=== PATIENT | female | born 1985 | race Caucasian/White ===

== ENCOUNTER 2018-08-31 05:59 | Day surgery (SDC) | payer BC ==
[2018-08-27 13:10] VITALS: BMI 39.1
[~2018-08-31 05:59] MED LIST: DEXAMETHASONE SOD PHOSPHATE 10 MG/ML 1 ML VIAL IV ONE; HEPARIN SODIUM,PORCINE 5,000 UNIT/ML 1 ML VIAL SQ ONE; LACTATED RINGERS 1,000 ML IV SCH; LIDOCAINE 1% 20 ML VIAL (10MG/ML) FOR IV START INTRADERMA PRN; MIDAZOLAM (PF) 2 MG/2 ML VIAL IV PRN; ONDANSETRON 4 MG/2 ML VIAL IVP ONE; ceFAZolin IN SWFI 2 GM/20 ML SYRINGE IVP ONE; fentaNYL (PF) 50 MCG/ML 2 ML AMP IV PRN
[2018-08-31] MEDS ORDERED: ACETAMINOPHEN IV (For NPO) 1,000 MG in EMPTY BAG 1 BAG IVPB ONE (06:24)
[2018-08-31] MEDS ORDERED: INDOCYANINE GREEN 25 MG VIAL IV STA (06:24)
--- NOTE | 2018-08-31 06:26 | P.GSHP ---
History of Present Illness H&P Date: 08/31/18 CHIEF COMPLAINT: Cholecystitis HISTORY OF PRESENT ILLNESS: The patient is a 32-year-old female who presents with history of epigastric including right upper quadrant abdominal pain. She underwent diagnostic studies for her gallbladder. Separately her clinical picture was consistent with cholecystitis. Now she presents for surgical intervention. PAST MEDICAL HISTORY: Please see list PAST SURGICAL HISTORY: Please see list MEDICATIONS: Please see list ALLERGIES: Denies. SOCIAL HISTORY: No illicit drug use or recent tobacco use FAMILY HISTORY: Pertinent for gallbladder disease REVIEW OF ORGAN SYSTEMS: CONSTITUTIONAL: No reports of fevers or chills. HEENT: Denies any troubles with the vision or hearing. ENDOCRINE: No reports of hypothyroidism. No diabetes. RESPIRATORY: No recent pneumonias. CARDIOVASCULAR: Denies chest pain or palpitations GI: No blood in stools or constipation. MUSCULOSKELETAL: Has occasional joint pain including back pain. NEURO: No seizure disorders or headaches. No recent stroke. PSYCH: No depression or suicidal ideation. GENITOURINARY: No active blood in urine. No urinary hesitancy. HEMATOLOGIC: No personal or family history of DVTs or pulmonary emboli. SKIN: No skin cancer. PHYSICAL EXAM: VITAL SIGNS: Afebrile vital signs stable GENERAL: Well-developed pleasant in no acute distress. HEENT: No scleral icterus. Extraocular movements grossly intact. Moist buccal mucosa. NECK: Supple without lymphadenopathy. CHEST: Unlabored respirations. Equal bilateral excursions. CARDIOVASCULAR: Regular rate regular rhythm rhythm. Distal 2+ pulses. ABDOMEN: Soft, nondistended. Tender along the epigastrium and right upper quadrant. MUSCULOSKELETAL: No clubbing, cyanosis, or edema. NEURO: Cranial nerves II to XII within normal limits. No focal or lateralizing signs. PSYCH: Alert and oriented to person, place and time. SKIN: Well-perfused good skin turgor. ASSESSMENT: 1. Epigastric and right upper quadrant abdominal pain 2. Chronic cholecystitis 3. Symptomatic gallstones. PLAN: 1. Will need a robotic cholecystectomy possible open. Benefits and risks were described. 2. Heparin for DVT prophylaxis 5000 units. 3. Antibiotic prophylaxis. Past Medical History Additional Past Medical History / Comment(s): abdominal pain and nausea History of Any Multi-Drug Resistant Organisms: None Reported Past Surgical History: Bariatric Surgery, Tonsillectomy Additional Past Surgical History / Comment(s): gastric sleeve, pinky toe left foot removed Past Anesthesia/Blood Transfusion Reactions: No Reported Reaction Smoking Status: Never smoker - Past Family History Mother Family Medical History: No Reported History Medications and Allergies Home Medications Medication Instructions Recorded Confirmed Type Medroxyprogesterone Acetate 150 mg IM ONCE 08/27/18 08/27/18 History [Depo-Provera] Multivitamins, Thera [Multivitamin 1 tab PO DAILY 08/27/18 08/27/18 History (formulary)] Allergies Allergy/AdvReac Type Severity Reaction Status Date / Time No Known Allergies Allergy Verified 08/31/18 06:10 Surgical - Exam Vital Signs Temp Pulse Resp BP Pulse Ox 98.6 F 71 16 138/75 97 08/31/18 06:23 08/31/18 06:23 08/31/18 06:23 08/31/18 06:23 08/31/18 06:23
[2018-08-31] MEDS ORDERED: ONDANSETRON 4 MG/2 ML VIAL IVP ONE (06:29)
[2018-08-31] MEDS ORDERED: DEXAMETHASONE SOD PHOSPHATE 10 MG/ML 1 ML VIAL IV ONE (06:30)
[2018-08-31 07:08] LABS: Basophils % (A) 1 %; Eosinophils # (A) 0.2 k/uL (0-0.7); Eosinophils % (A) 3 %; HCT 40.4 % (34.0-46.0); HGB 13.3 gm/dL (11.4-16.0); Lymphocytes # (A) 2.5 k/uL (1.0-4.8); Lymphocytes % (A) 31 %; MCHC 33.1 g/dL (31.0-37.0); MCV 90.8 fL (80.0-100.0); Monocytes # (A) 0.4 k/uL (0-1.0); Monocytes % (A) 5 %; Neutrophils # (A) 4.8 k/uL (1.3-7.7); Neutrophils % (A) 60 %; Platelet Count 200 k/uL (150-450); RBC 4.45 m/uL (3.80-5.40); RDW 12.4 % (11.5-15.5); WBC 8.1 k/uL (3.8-10.6)
[2018-08-31] MEDS ORDERED: GLYCOPYRROLATE 0.2 MG/ML 2 ML VIAL ONE (07:38)
[2018-08-31] MEDS ORDERED: NEOSTIGMINE 1 MG/ML 10 ML VIAL ONE (07:38)
[2018-08-31] MEDS ORDERED: KETAMINE 10 MG/ML 20 ML VIAL ONE (07:38)
[2018-08-31] MEDS ORDERED: LIDOCAINE 1% INJ 10MG/ML (20 ML MDV) ONE (07:38)
[2018-08-31] MEDS ORDERED: fentaNYL (PF) 50 MCG/ML 2 ML AMP ONE (07:38)
[2018-08-31] MEDS ORDERED: SUCCINYLCHOLINE CHLORIDE 100 MG/5 ML SYR IV ONE (07:38)
[2018-08-31] MEDS ORDERED: ROCURONIUM BROMIDE 10 MG/ML 10 ML VIAL IV ONE (07:38)
[2018-08-31] MEDS ORDERED: PROPOFOL 10 MG/ML 20 ML VIAL IV ONE (07:38)
[2018-08-31] MEDS ORDERED: MIDAZOLAM 2 MG/2 ML VIAL ONE (07:38)
[2018-08-31] MEDS ORDERED: BUPIVACAIN-EPI 0.25%-1:200,000 30 ML VIAL SQ ONE (08:01)
[2018-08-31] MEDS ORDERED: INDOCYANINE GREEN 25 MG VIAL IV ONE (08:02)
[2018-08-31] MEDS ORDERED: BUPIVACAIN-EPI 0.5%-1:200,000 30 ML VIAL SQ ONE (08:03)
--- NOTE | 2018-08-31 08:49 | P.OP ---
Date of Procedure: 08/31/18 Description of Procedure: SURGEON: FERNANDA CAIN MD PREOPERATIVE DIAGNOSES: 1. Right upper quadrant abdominal pain 2. Chronic cholecystitis 3. Morbid obesity due to excess calories, BMI 39.1 4. Gallstones 5. History of sleeve gastrectomy POSTOPERATIVE DIAGNOSES: 1. Right upper quadrant abdominal pain 2. Chronic cholecystitis 3. Morbid obesity due to excess calories, BMI 39.1 4. Gallstones 5. History of sleeve gastrectomy OPERATION: Robotic-assisted da Cedric Xi laparoscopic cholecystectomy, multiport with FIREFLY ESTIMATED BLOOD LOSS: 5 mL. SPECIMENS REMOVED: Gallbladder. COMPLICATIONS: None. OPERATIVE FINDINGS: 1. Chronic cholecystitis 2. Gallstones, small 0.2 to 0.3 mm 3. Decompression of gallbladder 4. Console time 10 minutes INDICATIONS: The patient is a 32-year-old female who presents with cholelcystitis. Surgical intervention with a laparoscopic cholecystectomy was described at length including injury to the biliary tree, bleeding, infection, need for further surgery. Informed consent was obtained. Robotic assisted laparoscopic approach was described. Benefits and risks of the procedure including but not limited to bleeding, infection, injury to the biliary tree was described. Informed consent was obtained. DESCRIPTION OF PROCEDURE: Patient was brought to the operating room, placed in supine position. After general induction, the abdomen had been prepped and draped in standard sterile fashion. The robotic da Cedric XI system was primed. After a timeout protocol was performed, the patient had been prepped and draped in standard sterile fashion. The patient was injected with indocyanine green. A 5 mm 0 degrees laparoscopic trocar entry was performed along the left upper quadrant. The abdomen insufflated to 15 mmHg pressure which was tolerated well. Diagnostic laparoscopy demonstrated no injury to bowel viscera or mesentery. The liver surface was unremarkable. Next, two 8 mm robotic ports were placed along the right upper abdomen. The camera 8-mm port was maintained along the epigastrium. Another 8 mm port was placed along the left upper abdominal wall after exchanging the 5 mm port. Please note that the ports were placed at least 10 to 15 cm away from the target anatomy of the gallbladder. The robot was docked along the left lateral abdomen. The patient was repositioned in reverse Trendelenburg position. Using a grasper for arm 3, a grasper for arm 4, including hook cautery for arm 1 , the robotic system was docked and primed as described. Instruments were interchanged by the assistant property manager including hook cautery, Bovie cautery and clip appliers. I had sat at the console. The gallbladder fundus was retracted over the dome of the liver. Initial attention was brought to the infundibulum which was gently retracted in the inferior lateral approach. Using a grasper, the cystic duct including the cystic artery was carefully skeletonized. FIREFLY was used to identify the cystic artery and cystic structures. Large PLASTIC clips were used throughout the entire case. Using a clip desktop operator 2 clips were placed proximally, and 1 clip was placed distally along the cystic duct and then cauterized with the cautery. Again care was taken to avoid any injury to the biliary tree as the common bile duct was clearly visualized during this portion of dissection. Next, the cystic artery was similarly clipped and cauterized. Electro-Bovie cautery was used to remove the gallbladder from the hepatic fossa. Hemostasis was checked and found to be adequate. Decompression of the gallbladder did occur with all bile removed using sponges. The robot was undocked. I re-scrubbed into the case. Using a 10 mm Endo Catch bag via the left upper quadrant incision, the specimen was removed from the abdominal cavity. All pneumoperitoneum instruments were evacuated from the abdominal cavity. The incisions were reapproximated using 4-0 Monocryl in an interrupted subcuticular fashion. Fascial defects were less than 8 mm in size. Please note along the trocar sites, local anesthetic was placed as a field block prior to insertion of all instruments. Liquid glue was applied to the skin. At the end of the procedure needle, sponge, and instrument count had been verified correct by the surgical coder. The patient was transferred to postanesthesia care unit in stable condition. Intraoperative films were shared with the patient's family who were very pleased with the level of care. Plan - Discharge Summary Discharge Rx Participant: No New Discharge Prescriptions: No Action Multivitamins, Thera [Multivitamin (formulary)] 1 tab PO DAILY Medroxyprogesterone Acetate [Depo-Provera] 150 mg IM ONCE Discharge Medication List Medroxyprogesterone Acetate [Depo-Provera] 150 mg IM ONCE 08/27/18 [History] Multivitamins, Thera [Multivitamin (formulary)] 1 tab PO DAILY 08/27/18 [History ]
[2018-08-31 09:00] VITALS: TEMP 99.5
[2018-08-31] MEDS: HYDROmorphone 0.5 MG/0.5 ML SYRINGE IVP PRN ×4 (09:04→09:33)
[2018-08-31 09:09] VITALS: RESP 16
[2018-08-31 10:13] VITALS: BP 160/82; PULSE 68
== END 2018-08-31 10:29 | disposition home or self-care (01) ==
LOC: OR 05:59
PROVIDERS: ATTEND Surgery Plastic and Reconstructive Surgery
DX: K80.10 Calculus of gallbladder with chronic cholecystitis without obstruction (principal); E66.01 Morbid (severe) obesity due to excess calories; Z68.39 Body mass index [BMI] 39.0-39.9, adult; Z98.84 Bariatric surgery status; Z90.3 Acquired absence of stomach [part of]; Z79.3 Long term (current) use of hormonal contraceptives
CPT/HCPCS: 81025; 86900; 86901; 88304; 85025; 86850; 47562; J2250; J1644; J1100; J2710; J2405; J2001; J3010; J0131; J0330; J2704; J1170; J0690

== ENCOUNTER → 2020-04-12 | Outpatient (CLI) | payer BC, OTHER ==
[2020-04-12 13:16] VITALS: BP 131/84; PULSE 106; RESP 18; TEMP 98.4; BMI 40.1
--- NOTE | 2020-04-12 13:38 | P.HPBAR ---
Bariatric H&P - History & Physicial H&P Date: 04/12/20 History & Physicial: Visit/CC: f/u post sx feb 2018; transfer of care Patient initial contact: Initial weight: Initial weight in pounds: Height: 5 ft 1 in Initial BMI: Last weight: Current weight: 96.524 kg Current weight in pounds: 212.80 Current BMI: 40.1 [place] body weight (based on NIH guidelines): 47.627 kg Excess body weight loss: The patient is a 34 year-old F who presents for Bariatric Assessment. Highest 301 pounds. Lowest weight of 199 pounds. Sleeve Feb 13, 2018. Blood work. She is dating. She reports 10 pounds weight gain. The man she is dating is an enabler. She reports increased heartburn in the past 9 months controlled with Omeprazole. Swallow study for new reflux. Recommend 2 week protein diet. Recommend bariatric labs. She reports no labs in 2 years. No hernia on skin Recommend follow-up in 3 weeks for labs, studies Past Medical History Past Medical History: GERD/Reflux, Hypertension Additional Past Medical History / Comment(s): abdominal pain and nausea History of Any Multi-Drug Resistant Organisms: None Reported Past Surgical History: Bariatric Surgery, Cholecystectomy, Orthopedic Surgery, Tonsillectomy Additional Past Surgical History / Comment(s): gastric sleeve, pinky toe left foot removed Past Anesthesia/Blood Transfusion Reactions: No Reported Reaction Past Psychological History: No Psychological Hx Reported Smoking Status: Current some day smoker Past Alcohol Use History: Rare Past Drug Use History: None Reported - Past Family History Mother Family Medical History: No Reported History Surgical - Exam Vital Signs Temp Pulse Resp BP 98.4 F 106 H 18 131/84 04/12/20 13:10 04/12/20 13:10 04/12/20 13:10 04/12/20 13:10 Bariatric Checklist Checklist: Plan: Checklist: EGD: 1. Hiatal hernia: 2. H. Pylori: HgbA1c: Vitamin D: Smoking: Never smoker Primary care physician referral: Dr. Coon Psychiatry clearance: Cardiology clearance: Sleep study: Diet journal: VTE risk score: VTE risk level: Rehab needs at discharge:
[2020-04-12 14:49] LABS: HCT 40.7 % (34.0-46.0); HGB 13.1 gm/dL (11.4-16.0); MCH 30.3 pg (25.0-35.0); MCHC 32.3 g/dL (31.0-37.0); MCV 93.9 fL (80.0-100.0); Mean Platelet Volume 7.7; Platelet Count 193 k/uL (150-450); RBC 4.33 m/uL (3.80-5.40); WBC 12.1 k/uL (3.8-10.6)
[2020-04-12 15:00] LABS: Partial Thromboplastin Time 22.7 sec (22.0-30.0)
[2020-04-12 22:32] LABS: % Iron Saturation 32.11 (12.00-45.00); African American GFR (CKD) 132.9 (60.0-200.0); Albumin 4.4 g/dL (3.80-4.90); Albumin/Globulin Ratio 2.44 (1.60-3.17); Anion Gap 8.5 mmol/L (4.00-12.00); Calcium 9.3 mg/dL (8.7-10.3); Carbon Dioxide 25.5 mmol/L (21.6-31.8); Chol/HDL Ratio 2.9; Globulin 1.8 g/dL (1.6-3.3); LDL Cholesterol,Calculated 84.8 mg/dL (0.0-131.0); Magnesium 1.8 mg/dL (1.5-2.4); Non-African American GFR(CKD) 114.6 (60.0-200.0); Potassium 4.4 mmol/L (3.5-5.5); Total Bilirubin 0.4 mg/dL (0.3-1.2); Total Protein 6.2 g/dL (6.2-8.2); VLDL Calculation 10.2 mg/dL (5.00-40.00)
[2020-04-12 22:47] LABS: Folate, Serum 12.3 ng/mL
[2020-04-13 00:17] LABS: Hemoglobin A1C 5.2 % (4.0-6.0)
[2020-04-13 14:13] LABS: Zinc, Serum 69 ug/dL (60-130)
[2020-04-14 06:58] LABS: Vitamin A 50 ug/dL (38-106)
[2020-04-14 07:52] LABS: Vit B1(Thiamine) 75 ug/L (38-122)
== END | disposition home or self-care (01) ==
LOC: BARWHC3 12:44
PROVIDERS: ATTEND Surgery Plastic and Reconstructive Surgery
DX: Z48.815 Encounter for surgical aftercare following surgery on the digestive system (principal); Z98.84 Bariatric surgery status; E89.1 Postprocedural hypoinsulinemia; D50.8 Other iron deficiency anemias; E44.0 Moderate protein-calorie malnutrition; E55.9 Vitamin D deficiency, unspecified; K74.1 Hepatic sclerosis; N19 Unspecified kidney failure; K50.90 Crohn's disease, unspecified, without complications
CPT/HCPCS: 80053; 80061; 82306; 82525; 82607; 82728; 82746; 83036; 83540; 83550; 83735; 83970; 84100; 84134; 84255; 84425; 84443; 84590; 84630; 85027; 85610; 85730; 99211

== ENCOUNTER → 2020-05-11 | Outpatient (CLI) | payer BC ==
--- NOTE | 2020-05-11 11:53 | FL ---
EXAMINATION TYPE: FL barium swallow DATE OF EXAM: 05/11/2020 CLINICAL HISTORY: History of gastric sleeve. GERD. TECHNIQUE: A double contrast esophagram is performed utilizing air and barium. A total of 1 minute 10 seconds of fluoroscopic time was utilized during procedure. Total images obtained 9. COMPARISON: None FINDINGS: The esophagus shows normal motility and emptying into the stomach. No gastroesophageal refl ux was seen during real time performance of this study. Gastric sleeve. IMPRESSION: 1. Status post gastric sleeve. 2. No hiatal hernia or esophageal mucosal abnormality.
== END | disposition home or self-care (01) ==
LOC: RADUSWWP 08:36
PROVIDERS: ATTEND Surgery Plastic and Reconstructive Surgery
DX: R13.10 Dysphagia, unspecified (principal); Z98.84 Bariatric surgery status
CPT/HCPCS: 74220

== ENCOUNTER → 2020-11-22 | Outpatient (CLI) | payer BC, OTHER ==
--- NOTE | 2020-11-22 16:23 | CT ---
EXAMINATION TYPE: CT abdomen pelvis wo con DATE OF EXAM: 11/22/2020 COMPARISON: None INDICATION: Abdomen pain., LT flank pain radiating to front. Hematuria. DLP: 978 mGycm, Automated exposure control for dose reduction was used. CONTRAST: 0 mL of Isovue 300. Study performed without Oral Contrast TECHNIQUE: Axial images were obtained from above the diaphragm to the pubic rami in the axial plane a t 5 mm thick sections. Reconstructed images are reviewed on the computer in the coronal plane. FINDINGS: Postsurgical changes from a gastric sleeve are evident. Limited CT sections are obtained the lung bases. The lung bases are clear. CT ABDOMEN: Liver: Normal Spleen: Normal Pancreas: Normal Adrenal glands: The adrenal glands are normal. Gallbladder: Surgically absent Kidneys: No masses are evident. No hydronephrosis is present. No cysts are present. No renal stone s are evident. Aorta: Vascular calcification is within the aorta. Inferior vena cava: Normal. CT PELVIS: Loops of bowel within the abdomen and pelvis are normal. There are loops of bowel which are incom pletely distended or lack oral contrast limiting their evaluation. Appendix: Normal as visualized. Urinary bladder: Normal. Genitourinary structures: Uterus contains an IUD. Adnexal regions are within normal limits. Osseous structures: No suspicious lytic or sclerotic lesions. IMPRESSIONS: 1. No suspicious abnormality account for hematuria
== END | disposition home or self-care (01) ==
LOC: RADCTMAIN 14:26
PROVIDERS: ATTEND Nurse Practitioner Family
DX: R10.9 Unspecified abdominal pain (principal); R31.9 Hematuria, unspecified
CPT/HCPCS: 74176

== ENCOUNTER → 2022-11-20 | Outpatient (CLI) | payer OTHER ==
[2022-11-20 14:06] VITALS: BP 149/108; PULSE 59; TEMP 98.3; BMI 40.2
--- NOTE | 2022-11-20 14:22 | P.BASOAP ---
Subjective Progress Note Date: 11/20/22 DATE OF SERVICE: 11/20/2022 REASON FOR CONSULTATION: Initial bariatric evaluation. HISTORY OF PRESENT ILLNESS: Paulina Ngo is a 37-year-old female who comes with lifelong morbid obesity. Her highest weight is 301 pounds. Her lowest weight is 199 pounds. She had a sleeve gastrecttomy Feb 13, 2018. She is 5 years out. She presents with weight gain. She has been lost to follow-up. She eats little amount of protein, less than 75 grams daily. She is not keeping food exercise journal. She gets 15,000 steps per day. She has epigastric pain for over 3 months with reflux. She is looking for weight loss. She presents in consultation for weight loss management. At height of 5 feet 1 inches, her ideal body weight is 131 pounds. Her highest weight was 301 pounds, BMI 57.0. She comes in 213 pounds from 212 pounds, 3 years ago. Her body mass index is 40.2. She has lost 88 pounds, lifetime. Percent excess weight loss lifetime is 52%. She is 82 pounds overweight. PAST MEDICAL HISTORY: 1. Morbid obesity due to excess calories 2. Body mass index of 57.0, initial 3. Gastroesophageal reflux disease 4. Hypertensive heart disease 5. Depressive disorder 6. Migraines PAST SURGICAL HISTORY: 1. Sleeve gastrecotmy 2. Cholecystectomy 3. Tonsillectomy HOME MEDICATIONS: Home Medications Medication Instructions Recorded Confirmed Multivitamins, Thera [Multivitamin 1 tab PO DAILY 08/27/18 11/20/22 (formulary)] Rizatriptan Benzoate [Maxalt] 10 mg PO DAILY PRN 11/20/22 11/20/22 Sertraline [Zoloft] 50 mg PO DAILY 11/20/22 11/20/22 norethindrone-e.estradioL-iron 1 each PO DAILY 11/20/22 11/20/22 [ Tablet] ALLERGIES: Allergies Allergy/AdvReac Type Severity Reaction Status Date / Time No Known Allergies Allergy Verified 04/12/20 13:16 SOCIAL HISTORY: Tobacco use. FAMILY HISTORY: No family history of ulcerative colitis disease or Crohn's disease. Family history of morbid obesity. No lupus in the family. No reports of stomach or esophageal cancer. REVIEW OF ORGAN SYSTEMS: CONSTITUTIONAL: At height of 5 feet 1 inches, her ideal body weight is 131 pounds. Her highest weight was 301 pounds, BMI 57.0. HEENT: Denies any active troubles with vision or hearing. ENDOCRINE: Denies diabetes. No hypothyroidism. CARDIOVASCULAR: Past reports of palpitations or heart attacks or chest pain. RESPIRATORY: Has daytime somnolence. Has asthma. GASTROINTESTINAL: Denies any bright red blood per rectum. No diarrhea. No constipation. MUSCULOSKELETAL: Has lower back pain and joint pain. Has osteoarthritis of the knees. NEURO: No headaches. No seizure disorders. PSYCH: Has depression. No suicidal ideation. RHEUMATOLOGIC: No lupus. No rheumatoid arthritis. HEMATOLOGIC: Denies any abnormal bleeding or bruising. No personal history of DVTs. SKIN: No rash. No skin cancer. PHYSICAL EXAM: VITAL SIGNS: Height 5 foot 1 inches, weight 213 pounds. BMI 40.2 Vital Signs Temp 98.3 F 11/20/22 14:02 Pulse 59 L 11/20/22 14:02 Resp BP 149/108 11/20/22 14:02 Pulse Ox FiO2 GENERAL: Well-developed in no acute distress. HEENT: No scleral icterus. Extraocular movements grossly intact. Hears conversational speech. No nasal drainage. NECK: Supple without lymphadenopathy. CHEST: Nonlabored respirations with equal bilateral excursions. CARDIOVASCULAR: Tachycardic. Distal 2+ pulses. ABDOMEN: Obese, soft, nontender, nondistended. MUSCULOSKELETAL: No clubbing, cyanosis. NEURO: No focal or lateralizing signs. Cranial nerves 2 through 12 grossly within normal limits. PSYCH: Appropriate affect. Alert and oriented to person, place and time. SKIN: Good skin turgor. Well perfused. ASSESSMENT: 1. Morbid obesity due to excess calories 2. Body mass index of 57.0, initial 3. Gastroesophageal reflux disease 4. Hypertensive heart disease 5. Depressive disorder 6. Migraines 7. Epigastric pain 8. Gastroesophageal reflux disease PLAN: 1. Recommend bariatric metabolic panel. 2. Recommend food journal 3. Recommend EGD. 4. Recommend management of hypertension. Objective - Vital Signs Vital signs: Vital Signs Temp 98.3 F 11/20/22 14:02 Pulse 59 L 11/20/22 14:02 Resp BP 149/108 11/20/22 14:02 Pulse Ox FiO2 Intake & Output 11/19/22 11/20/22 11/20/22 18:59 06:59 18:59 Weight 96.615 kg Assessment/Plan Plan: Date: 11/20/22 Initial Weight: Initial BMI: Current Weight: 96.615 kg Current BMI: 40.2 Type of Surgery: Total Volume in Band: Previous Volume: Volume Removed: Volume Added: Band Size:
== END ==
LOC: BARWHC3 13:44
PROVIDERS: ATTEND Surgery Plastic and Reconstructive Surgery
DX: E66.01 Morbid (severe) obesity due to excess calories (principal); Z68.43 Body mass index [BMI] 50.0-59.9, adult; K21.9 Gastro-esophageal reflux disease without esophagitis; I10 Essential (primary) hypertension; F32.A Depression, unspecified; G43.909 Migraine, unspecified, not intractable, without status migrainosus
CPT/HCPCS: 99211